=== PATIENT | male | born 1980 | race African-American/Black ===

== ENCOUNTER 2023-06-06 21:21 | Emergency (ER) | payer MEDICARE, SELFPAY ==
[2023-06-06 21:25] VITALS: BP 167/125
--- NOTE | 2023-06-06 22:28 | ED.GENMED ---
History of Present Illness
General
Chief Complaint: Heart Rate Problem
Time Seen by Provider: 06/06/23 21:58
Travel History
Have you had any contact with someone who has COVID-19?: No
Do you have any symptoms of coronavirus? Fever > 100 degrees, chills, cough, shortness of breath, sore throat, loss of taste or smell, muscle aches, or headache?: No
History of Present Illness
History of Present Illness:
HPI: The patient was concerned that he might be in A-fib. However he also tells me that today, he found his son in [place]. He started drinking alcohol and does drink alcohol daily. He also used some crack and marijuana. He came in here
wanting help and felt that he needed to get 'out of the city'. He took the train here. He feels that he is withdrawing from alcohol currently. He says that he has Ativan at home.
EXAM:
GENERAL: Appears somewhat unkempt
HEENT: Moist oral mucosa
CARDIOVASCULAR: No murmurs, tachycardic heart rate, regular rhythm, No chest wall tenderness
PULMONARY: No respiratory distress, breath sounds are clear and equal
ABDOMEN: Soft with no peritoneal signs, no tenderness
NEUROLOGIC: Excellent strength all extremities, no coordination deficits
PSYCHIATRIC: Initially had appropriate mental status with reasonable insight and judgement (however during his stay in the ED this changed), appears somewhat upset, CIWA = 20, however patient's behavior seemed to become more bizarre with increasing
agitation while in ED
EXTREMITIES: Nontender, trace lower extremity bilateral edema, moves all extremities equally
SKIN: No rash, no lesions
TIME OF INITIAL ENCOUNTER: 10:20 PM
NUMBER AND COMPLEXITY OF PROBLEMS ADDRESSED AT THE ENCOUNTER
� Chronic conditions affecting care: Alcoholism, drug use, A-fib history, high blood pressure
� Acute Exacerbation and/or Progression of Chronic Illness: This is an acute problem
� Differential Diagnosis includes: Alcohol withdrawal, alcohol intoxication, recurrence of A-fib, electrolyte abnormality, dehydration, mental illness, substance abuse
AMOUNT AND/OR COMPLEXITY OF DATA TO BE REVIEWED AND ANALYZED
� I performed an independent evaluation of and my interpretation is:
EKG: Sinus 99, LVH H with associated ST abnormality with no old EKG to compare
CT:
X-rays:
Laboratory Studies: CBC relatively unremarkable, BUN 36, creatinine 2.8, the patient has stated that he has been told that he has 'bad kidneys' in the past but cannot elaborate.
Other:
� Review of other/old records: No old records available for review
� Clinical information was obtained by an independent historian:
� Prescriptions/Medications Considered but not given:
� Further testing considered but not performed:
RISK OF COMPLICATIONS AND/OR MORBIDITY OR MORTALITY OF PATIENT MANAGEMENT
� Social determinants of health affecting care: Uncertain where he is living or where he comes from
� Discussion with other providers: I had notified [facility] and left a message with them at 10:34 PM. I spoke to Betsey with [facility] at 12:50 AM and she will come over here for evaluation. I also discussed with crisis to see if
they could help as the patient does have mental health issues as well. I also try to call [facility] to try to get old records but was unsuccessful in speaking to anybody useful. [facility] evaluated the patient around 1:45 AM. He seems to have
increasingly bizarre behavior. I have also asked for crisis to evaluate the patient.
� Escalation of care including admission/observation vs risk of discharge considered: The patient CIWA score is elevated however this is primarily due to subjective self-reported symptoms. However, he is barely tachycardic.
Will give fluids and likely will give Ativan. The patient perseverates over the fact that he needs to be 'medically cleared' saying that he also has back pain and is very concerned about his kidneys. He had told me that his kidney function had been
impaired in the past and he has his records but he refuses to share them with me. He says that I am supposed to look for them at the other hospitals. [facility] does have access to and states that there is no records for him at any of the [facility]
hospitals. Crystal from [facility] also indicates that the patient was recently hospitalized at [facility] on 05/29/2023, he has a history of dual diagnosis and was recently [facility] in [place]. He is also was seen by crisis at [facility].
Updated 5 AM�patient chart to be reviewed by [facility] in the next few hours.
Phy Exam
Physical Exam
Physical Exam:
See HPI
Course
Orders/Labs/Results
Orders:
Orders
06/06/23 21:27
ECG [Electrocardiogram (*1)] Urgent
Reason for Study: Palpitations
06/06/23 21:28
EKG- Treatment ONCE
06/06/23 22:38
Alcohol Urgent
Basic Metabolic Panel Urgent
Complete Blood Count/With Diff Urgent
Magnesium Urgent
TSH Reflex To Free T4 Urgent
Troponin I Urgent
06/06/23 22:41
0.9% Sodium Chloride 1000 ml [Nss] 1,000 ml IV BOLUS
06/06/23 23:41
Fentanyl, Urine Urgent
Urinalysis Reflex To Culture Urgent
Date Specimen was Collected: 06/06/23
Time Specimen was Collected: 23:40
Comment: ADD ON
Urine Drug Abuse Screen Urgent
Date Specimen was Collected: 06/06/23
Time Specimen was Collected: 23:40
06/07/23 00:20
Add On- LAB Urgent
Tests Added?: urinalysis with reflex culture
06/07/23 00:31
Crisis Consult Urgent
Reason for Consult: mental health and substance use eval
06/07/23 07:22
Acetaminophen [Tylenol] 650 mg PO NOW STA
Abnormal Lab Results
06/06/23 06/06/23
22:38 23:41
RBC 4.37 L 10^6/uL
(4.70-6.10)
Hgb 12.9 L g/dL
(13.0-18.0)
Hct 37.2 L %
(39.0-52.0)
MPV 10.6 H fL
(7.4-10.4)
Absolute Neuts (auto) 7.2 H 10^3/uL
(1.4-6.5)
Absolute Monos (auto) 1.0 H 10^3/uL
(0.1-0.6)
Sodium 132 L mmol/L
(135-145)
Chloride 97 L mmol/L
(98-107)
BUN 36 H mg/dl
(9-20)
Creatinine 2.8 H mg/dL
(0.7-1.3)
Glucose 113 H mg/dl
(70-99)
Ur Barbiturates Screen Positive H
(Negative)
U Benzodiazepines Scrn Positive H
(Negative)
Urine Cocaine Screen Positive H
(Negative)
06/06/23 22:38
06/06/23 22:38
Vital Signs
Initial and Last Documented VS:
Initial Vital Signs
Temp Pulse Resp BP Pulse Ox
98.2 F 107 20 167/125 98
06/06/23 21:25 06/06/23 21:25 06/06/23 21:25 06/06/23 21:25 06/06/23 21:25
Last Documented Vital Signs
Temp Pulse Resp BP Pulse Ox
98 F 91 20 166/102 95
06/07/23 08:06 06/07/23 08:06 06/07/23 08:06 06/07/23 08:06 06/07/23 08:06
*Critical Care Note
Total Time (30-74mins, 75-104mins- exclusive of procedures): Not Applicable
ED Attending Note
-
Portions of this chart may have been created with voice recognition software.� Occasional wrong word or��sound alike� substitutions may have occurred due to the inherent limitations of voice recognition software.
Discharge Plan
Departure
Patient Disposition: Acute Rehab Facility
Date of Disposition: 06/07/23
Time of Disposition: 04:20
Discharge Problem:
Substance abuse
Prescriptions:
No Action
atorvastatin 40 mg Tablet
40 mg PO DAILY
metformin 500 mg Tablet
500 mg PO DAILY
doxepin 50 mg Capsule
50 mg PO DAILY
omeprazole 40 mg Capsule,Delayed Release(Dr/Ec)
40 mg PO DAILY
nifedipine [Procardia XL] 60 mg Tablet Extended Release 24hr
60 mg PO DAILY
gabapentin 800 mg Tablet
800 mg PO BID
mirtazapine [Remeron] 30 mg Tablet
30 mg PO DAILY
hydrochlorothiazide 25 mg Tablet
25 mg PO BID
sertraline 50 mg Tablet
50 mg PO DAILY
cholecalciferol (vitamin D3) [Vitamin D3] 25 mcg (1,000 unit) Tablet
25 mcg PO DAILY
aspirin 81 mg Capsule
81 mg PO DAILY
Lopressor
25 mg PO BID
folic acid
1 tab PO DAILY
sertraline 50 mg Tablet
50 mg PO DAILY
Referrals:
NONE,* [Family Provider] -
Interventions
Interventions:
*Risk Screen - Suicide Last Done: 06/06/23 21:25
*General Assessment Last Done: 06/06/23 21:25
*Neglect/Abuse Screening Last Done: 06/06/23 21:25
ED- Fall Risk Assessment Last Done: 06/07/23 12:09
*ED COVID-19 Vaccine History Last Done: 06/07/23 12:09
*Nursing Disposition Last Done: 06/07/23 12:09
ED- Cardiac Assessment Last Done: 06/06/23 22:45
ED- Neurological Assessment Last Done: 06/06/23 22:45
ED-Psychological Assessment Last Done: 06/06/23 22:45
ED- Pulmonary Assessment Last Done: 06/06/23 22:45
Discharge Date and Time
Discharge Date/Time: 06/07/23 11:45
Print Language: [place]
[2023-06-06 22:32] VITALS: BP 142/103
[2023-06-06 22:45] VITALS: BMI 45.6
[2023-06-06 22:46] LABS: % Basophils 0.3 % (0-2); % Eosinophils 0.2 % (0-6); % Immature Granulocytes 0.4 % (0-0.5); % Lymphocytes 20.7 % (20.5-51.1); % Monocytes 9.3 % (1.7-9.3); % Neutrophils 69.1 % (42.2-75.2); Absolute Lymphocytes 2.2 10^3/uL (1.2-3.4); Absolute Neutrophils 7.2 10^3/uL (1.4-6.5); Hematocrit 37.2 % (39.0-52.0); Hemoglobin 12.9 g/dL (13.0-18.0); Mean Corp Hgb Conc. 34.7 g/dL (33.0-37.0); Mean Corpuscular Hgb 29.5 pg (27.0-31.0); Mean Corpuscular Volume 85.1 fL (80.0-94.0); Mean Platelet Volume 10.6 fL (7.4-10.4); Nucleated Red Blood Cells % 0 % (-); Platelet Count 246 10^3/uL (130-400); Red Blood Cell Count 4.37 10^6/uL (4.70-6.10); Red Cell Dist. Width 13.5 % (11.5-14.5); White Blood Cell Count 10.4 10^3/uL (4.8-10.8)
[2023-06-06 23:00] VITALS: BP 154/106
[2023-06-06 23:01] LABS: Alcohol None Detected; Blood Urea Nitrogen 36 mg/dl (9-20); Calcium 9.9 mg/dl (8.4-10.2); Carbon Dioxide 27 mmol/L (22-30); Chloride 97 mmol/L (98-107); Estimated Creatinine Clearance 59 ml/min; Glucose 113 mg/dl (70-99); Magnesium 1.9 mg/dl (1.6-2.3); Potassium 4.1 mmol/L (3.5-5.1); Sodium 132 mmol/L (135-145); eGFR 27.84
[2023-06-06 23:07] LABS: Troponin I 0.023 ng/ml
[2023-06-06 23:37] LABS: TSH Reflex To Free T4 4.04 uIU/ml (0.47-4.68)
[2023-06-07] MEDS: NSS 1000 IV (00:07)
[2023-06-07 00:28] LABS: Amphetamines Negative (Negative); Barbiturates Positive (Negative); Benzodiazepines Positive (Negative); Buprenorphine Negative (Negative); Cocaine Positive (Negative); Marijuana Negative (Negative); Methadone Negative (Negative); Methamphetamines Negative (Negative); Opiates Negative (Negative); Phencyclidine Negative (Negative); Tricyclic Antidepressants Negative (Negative)
[2023-06-07 00:33] LABS: Urine Albumin Trace (Neg - Trace); Urine Bilirubin Negative (Negative); Urine Character Clear (Clear); Urine Color Yellow; Urine Glucose Negative (Negative); Urine Ketone Negative (Negative); Urine Leukocyte Negative (Negative); Urine Nitrite Negative (Negative); Urine Occult Blood Negative (Negative); Urine Specific Gravity 1.015 (<1.030); Urine Urobilinogen Negative (Neg - 1+)
[2023-06-07 00:38] LABS: Fentanyl, Urine Negative (Negative)
[2023-06-07] MEDS: TYLENOL 650 MG PO (08:00)
[2023-06-07 08:06] VITALS: BP 166/102
== END 2023-06-07 11:45 ==
LOC: EMR 21:21
PROVIDERS: EMERGENCY PHYSICIAN Emergency Medicine
DX: M54.9 Dorsalgia, unspecified (principal); R46.2 Strange and inexplicable behavior; R45.1 Restlessness and agitation; R00.0 Tachycardia, unspecified; I48.91 Unspecified atrial fibrillation; F10.90 Alcohol use, unspecified, uncomplicated; F14.90 Cocaine use, unspecified, uncomplicated; F12.90 Cannabis use, unspecified, uncomplicated; Z79.82 Long term (current) use of aspirin; Z88.8 Allergy status to other drugs, medicaments and biological substances
CPT/HCPCS: 99284; 96360; 80048; 80306; 80307; 81003; 82077; 83735; 84443; 84484; 85025; 93005